=== PATIENT | female | born 2000 | race Caucasian/White ===

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

== ENCOUNTER 2020-06-17 15:47 | Emergency (ER) | payer OTHER ==
[~2020-06-17] VITALS: Ht 165.1 cm; Wt 90.9 kg
[~2020-06-17 15:47] MED LIST changes: +PROZAC40 MG PO; +VALTREX 50500 MG/TAB PO
[2020-06-17 15:48] VITALS: TEMP 98
[2020-06-17 16:03] LABS: BASO # 0.1 (0.0-0.2); BASO % 0.6 % (0.0-2.0); COLLECTION METHOD CLEAN CATCH; EOS # 0.1 (0.0-0.7); EOS % 0.6 % (0-4.0); GRAN # 5.5 (1.4-6.5); GRAN % 69.9 % (42.2-75.2); HEMATOCRIT 39.1 % (35.0-45.0); HEMOGLOBIN 12.6 g/dl (12.0-15.0); LYMPH # 1.4 (1.2-3.4); MEAN CELL VOLUME 94 fl (80.0-95.0); MEAN CORPUSCULAR HEMOGLOBIN 30 pg (26.0-32.0); MEAN CORPUSCULAR HGB CONC 32 g/dl (33.0-37.0); MEAN PLATELET VOLUME 11.6 fl (7.4-10.4); MONO # 0.8 (0.1-0.6); MONO % 10.6 % (1.7-9.3); PLATELET COUNT 276 K/mm3 (130-400); RED BLOOD COUNT 4.15 M/mm3 (4.10-5.30); REDCELL DISTRIBUTION WIDTH-CV 12.7 % (11.5-14.5)
[2020-06-17 16:08] LABS: PH 7 (5-8); SQUAMOUS EPITHELIAL 0-2 /hpf; URINE APPEARANCE Clear; URINE BACTERIA None Seen /hpf; URINE BILIRUBIN Negative (NEGATIVE); URINE BLOOD Negative (NEGATIVE); URINE COLOR Straw; URINE GLUCOSE 3+ (NEGATIVE); URINE KETONE 1+ (NEGATIVE); URINE LEUKOCYTE ESTERASE Negative (NEGATIVE); URINE NITRATE Negative (NEGATIVE); URINE PROTEIN(semi-quant) Negative (NEGATIVE); URINE RBC 0-2 /hpf; URINE UROBILINOGEN Negative (NEGATIVE)
[2020-06-17 17:03] LABS: ALANINE AMINOTRANSFERASE 15 U/L (4-34); ALBUMIN 3.9 gm/dL (3.5-5.0); ALKALINE PHOSPHATASE 72 U/L (50-136); ANION GAP 8 mmol/L (7-16); AST,SGOT 19 U/L (15-37); BILIRUBIN,TOTAL 0.4 mg/dL (0.0-1.0); BLOOD UREA NITROGEN 17 mg/dL (7-17); CALCIUM 8.8 mg/dL (8.4-10.2); CARBON DIOXIDE 26 mmol/L (22-30); CHLORIDE 102 mmol/L (98-107); CREATININE, serum 0.58 (0.52-1.25); GLUCOSE 388 mg/dL (74-106); POTASSIUM 4.6 mmol/L (3.4-5.0); SODIUM 136 mmol/L (137-145); TOTAL PROTEIN 6.8 gm/dL (6.4-8.2)
[2020-06-17 17:08] LABS: ACETONE,SERUM NEGATIVE
[2020-06-17] MEDS ORDERED: FLEXERIL 1010 MG/TAB PO (17:42)
[2020-06-17 18:15] VITALS: BP 131/79; PULSE 70
== END 2020-06-17 18:15 | disposition home or self-care (01) ==
LOC: COL.ER 15:47
PROVIDERS: Emergency Medicine; Nurse Practitioner
DX: S16.1XXA Strain of muscle, fascia and tendon at neck level, initial encounter (principal); S00.93XA Contusion of unspecified part of head, initial encounter; M25.552 Pain in left hip; E10.65 Type 1 diabetes mellitus with hyperglycemia; F17.290 Nicotine dependence, other tobacco product, uncomplicated; V88.8XXA Person injured in other specified noncollision transport accidents involving motor vehicle, nontraffic, initial encounter
CPT/HCPCS: J1885; J2405; J7030